=== PATIENT | female | born 1995 | race Caucasian/White ===

== ENCOUNTER 2017-09-15 14:43 | Emergency (ER) | payer OTHER ==
[~2017-09-15] VITALS: Ht 165.1 cm; Wt 122.5 kg
[~2017-09-15 14:43] MED LIST: AZIT250 PO; BIRTHCONTROL; Bactrim Ds Tab1 EACH PO; CEPH500 PO; CRUTCH3 USE; CRUTCH4 USE; Cipro500 MG PO; Cleocin HCl150 MG PO; HYDACE5 PO; HYDR1TAB94 PO; IBUP600 PO; IBUP800 PO; LORA10ER PO; LORTAB 5-325 M1 EACH PO; Macrobid 100 M100 MG PO; NAPR500 PO; NAPR550 PO; NITR100CA PO; Naprosyn500 MG PO; OMEP10ER PO; OTC ALLERGY MEDS; OXYACE5T PO; PHENA200 PO; PRILOSEC PO; PROACE100 PO; PROM25 PO; Pepcid40 MG PO; Percocet 5-3251 EACH PO; Prednisone20 MG PO; Pyridium200 MG PO; RXHYD5325 PO; RXPROACE PO; SULTRIDS PO; TRAM50 PO; TRIA80TC TOP; Ultram50 MG PO; ZADITOR5 ML BOTHEYES; ZYRTEC10 MG PO; Zithromax250 MG PO; Zofran Odt4 MG SL; Zofran Odt8 MG SL
[2017-09-15 15:45] LABS: Calcium, Ionized (POC) 1.17 mmol/L (1.10-1.46); Chloride (POC) 103 mmol/L (98-108); Creatinine (POC) 0.8 mg/dL (0.6-1.0); Glucose (ISTAT POC) 107 mg/dL (70-99); Hemoglobin (POC) 12.9 g/dL (12.0-16.0); Potassium (POC) 3.1 mmol/L (3.5-5.5); Sodium (POC) 140 mmol/L (135-148); Total CO2 (POC) 25 mmol/L (21-32)
[2017-09-15 15:48] LABS: Source, Urine Clean Catch
[2017-09-15 16:04] LABS: Appearance, Urine Hazy (Clear); Bilirubin, Urine Neg (Neg); Blood, Urine 5+ (Neg); Color, Urine Yellow (P-Yellow); Glucose Qualitative, Urine Neg (Neg); Ketones, Urine 2+ (Neg); Leukocyte Esterase, Urine 2+ (Neg); Nitrite, Urine Neg (Neg); Protein, Urine 1+ (Neg); Urobilinogen, Urine NORM (Normal)
[2017-09-15 16:53] LABS: Bacteria Mod /hpf; Squamous Epithelial Cells Few /hpf (Few)
[2017-09-15] MEDS ORDERED: Bactrim Ds Tab1 EACH PO (17:12)
[2017-09-15] MEDS ORDERED: Pyridium100 MG PO (17:12)
== END 2017-09-15 17:30 | disposition home or self-care (01) ==
LOC: ER 14:43
PROVIDERS: Physician Assistant
DX: N12 Tubulo-interstitial nephritis, not specified as acute or chronic (principal); E87.6 Hypokalemia; Z88.0 Allergy status to penicillin; Z79.899 Other long term (current) drug therapy; F17.290 Nicotine dependence, other tobacco product, uncomplicated
CPT/HCPCS: 36415; 80047; 81001; 81025; 85014; 87077; 87086; 87186; 99283

== ENCOUNTER 2017-09-22 14:13 | Emergency (ER) | payer OTHER ==
[~2017-09-22] VITALS: Ht 165.1 cm; Wt 122.5 kg
[~2017-09-22 14:13] MED LIST changes: +Pyridium100 MG PO
[2017-09-22 15:03] LABS: Source, Urine Clean Catch
[2017-09-22 15:16] LABS: Appearance, Urine Clear (Clear); Bilirubin, Urine Neg (Neg); Blood, Urine 2+ (Neg); Color, Urine Yellow (P-Yellow); Glucose Qualitative, Urine Neg (Neg); Ketones, Urine 4+ (Neg); Leukocyte Esterase, Urine 2+ (Neg); Nitrite, Urine Neg (Neg); Protein, Urine Neg (Neg); Specific Gravity, Urine 1.015 (1.003-1.022); Urobilinogen, Urine NORM (Normal)
[2017-09-22 15:22] LABS: Bacteria Rare /hpf; Squamous Epithelial Cells Many /hpf (Few)
[2017-09-22 15:26] LABS: BASOPHILS ABSOLUTE AUTO 0.02 K/mm3 (0.00-0.23); BASOPHILS PERCENT AUTO 0 % (0-2); EOSINOPHILS ABSOLUTE AUTO 0.03 K/mm3 (0.00-0.68); EOSINOPHILS PERCENT AUTO 0 % (0-6); Hematocrit 41.4 % (33.0-51.0); Hemoglobin 13.5 g/dL (11.5-16.0); IMMATURE GRAN ABSOLUTE AUTO 0.02 K/mm3 (0.00-0.10); IMMATURE GRAN PERCENT AUTO 0 % (0-1); LYMPHOCYTES ABSOLUTE AUTO 2.56 K/mm3 (0.84-5.20); LYMPHOCYTES PERCENT AUTO 35 % (21-46); MONOCYTES ABSOLUTE AUTO 0.54 K/mm3 (0.16-1.47); MONOCYTES PERCENT AUTO 7 % (4-13); Mean Corpuscular HGB 28.1 pg (26.0-34.0); Mean Corpuscular HGB Conc 32.6 g/dL (31.5-36.5); Mean Corpuscular Volume 86 fL (80-100); Mean Platelet Volume 10.8 fL (9.1-12.4); NEUTROPHILS ABSOLUTE AUTO 4.11 K/mm3 (1.96-9.15); NEUTROPHILS PERCENT AUTO 56 % (41-73); Platelet Count 270 K/mm3 (150-400); RDW Coefficient Variation 14.1 % (11.7-14.2); RDW Standard Deviation 44.5 fL (35.1-46.3); White Blood Cell Count 7.28 K/mm3 (4.00-11.30)
[2017-09-22 15:38] LABS: Alanine Aminotransfer (ALT/SGP 31 U/L (12-78); Albumin, Blood 3.8 g/dL (3.4-5.0); Alk Phos 61 U/L (50-136); Anion Gap 11 mmol/L (6-16); Aspartate Aminotrans (AST/SGOT 35 U/L (12-37); Blood Urea Nitrogen 7 mg/dL (8-24); Bun/Creatinine Ratio 8.8 (12.0-20.0); CO2, Blood 23 mmol/L (21-32); Calcium, Blood 9.1 mg/dL (8.5-10.1); Chloride, Blood 104 mmol/L (98-108); Globulin, Blood 3.9 g/dL (2.2-4.0); Glomerular Filtration Rate >60 (60-); Glucose, Blood 98 mg/dL (70-99); Potassium, Blood 3.2 mmol/L (3.5-5.5); Sodium, Blood 138 mmol/L (136-145); Total Protein, Blood 7.7 g/dL (6.4-8.2)
[2017-09-22] MEDS ORDERED: PROC5 PO (16:58)
[2017-09-22] MEDS ORDERED: OMEPRAZOLE MAGN20 MG PO (17:00)
== END 2017-09-22 18:14 | disposition home or self-care (01) ==
LOC: ER 14:13
PROVIDERS: Emergency Medicine
DX: R11.2 Nausea with vomiting, unspecified (principal); N39.0 Urinary tract infection, site not specified; Z88.0 Allergy status to penicillin; Z79.2 Long term (current) use of antibiotics; F17.290 Nicotine dependence, other tobacco product, uncomplicated
CPT/HCPCS: 36415; 80053; 81001; 81025; 85025; 87086; 96361; 96365; 96375; 99283; C9113; J1956; J2405; J3490; J7030

== ENCOUNTER 2017-09-22 23:52 | Emergency (ER) | payer OTHER ==
[~2017-09-22] VITALS: Ht 165.1 cm; Wt 122.5 kg
[~2017-09-22 23:52] MED LIST changes: +OMEPRAZOLE MAGN20 MG PO; +PROC5 PO
== END 2017-09-23 03:25 | disposition home or self-care (01) ==
LOC: ER 23:52
DX: R11.2 Nausea with vomiting, unspecified (principal); Z87.891 Personal history of nicotine dependence; Z79.899 Other long term (current) drug therapy; Z88.0 Allergy status to penicillin
CPT/HCPCS: 96374; 96375; 99283; J2405; J2550

== ENCOUNTER 2017-10-07 11:53 | Emergency (ER) | payer OTHER ==
[~2017-10-07] VITALS: Ht 165.1 cm; Wt 108.9 kg
[2017-10-07] MEDS ORDERED: Verotin-Gr Cap1 EACH PO (12:09)
[2017-10-07 12:37] LABS: BASOPHILS ABSOLUTE AUTO 0.02 K/mm3 (0.00-0.23); BASOPHILS PERCENT AUTO 0 % (0-2); EOSINOPHILS ABSOLUTE AUTO 0.06 K/mm3 (0.00-0.68); EOSINOPHILS PERCENT AUTO 1 % (0-6); Hematocrit 42.2 % (33.0-51.0); Hemoglobin 13.8 g/dL (11.5-16.0); IMMATURE GRAN ABSOLUTE AUTO 0.01 K/mm3 (0.00-0.10); IMMATURE GRAN PERCENT AUTO 0 % (0-1); LYMPHOCYTES ABSOLUTE AUTO 1.86 K/mm3 (0.84-5.20); LYMPHOCYTES PERCENT AUTO 32 % (21-46); MONOCYTES PERCENT AUTO 5 % (4-13); Mean Corpuscular HGB 28.3 pg (26.0-34.0); Mean Corpuscular HGB Conc 32.7 g/dL (31.5-36.5); Mean Corpuscular Volume 87 fL (80-100); Mean Platelet Volume 11.4 fL (9.1-12.4); NEUTROPHILS ABSOLUTE AUTO 3.64 K/mm3 (1.96-9.15); NEUTROPHILS PERCENT AUTO 62 % (41-73); Platelet Count 277 K/mm3 (150-400); RDW Coefficient Variation 13.7 % (11.7-14.2); RDW Standard Deviation 43.3 fL (35.1-46.3); Red Blood Cell Count 4.88 M/mm3 (3.80-5.20); White Blood Cell Count 5.89 K/mm3 (4.00-11.30)
[2017-10-07 12:59] LABS: Alanine Aminotransfer (ALT/SGP 24 U/L (12-78); Albumin, Blood 3.6 g/dL (3.4-5.0); Albumin/Globulin Ratio 0.9 (0.8-1.8); Alk Phos 54 U/L (50-136); Anion Gap 8 mmol/L (6-16); Aspartate Aminotrans (AST/SGOT 15 U/L (12-37); Beta HCG, Quantitative, Serum 14 mIU/mL (0-3); Bilirubin, Total 0.8 mg/dL (0.1-1.0); Blood Urea Nitrogen 7 mg/dL (8-24); Bun/Creatinine Ratio 9.4 (12.0-20.0); CO2, Blood 25 mmol/L (21-32); Calcium, Blood 9.1 mg/dL (8.5-10.1); Chloride, Blood 107 mmol/L (98-108); Creatinine, Blood 0.74 mg/dL (0.40-1.00); Globulin, Blood 4.2 g/dL (2.2-4.0); Glomerular Filtration Rate >60 (60-); Glucose, Blood 95 mg/dL (70-99); Potassium, Blood 3.4 mmol/L (3.5-5.5); Sodium, Blood 140 mmol/L (136-145); Total Protein, Blood 7.8 g/dL (6.4-8.2)
[2017-10-07 13:04] LABS: Source, Urine Clean Catch
[2017-10-07 13:18] LABS: Bilirubin, Urine Neg (Neg); Blood, Urine 5+ (Neg); Glucose Qualitative, Urine Neg (Neg); Ketones, Urine 4+ (Neg); Leukocyte Esterase, Urine 2+ (Neg); Nitrite, Urine Neg (Neg); Protein, Urine 3+ (Neg); Urobilinogen, Urine 1+ (Normal)
[2017-10-07 13:39] LABS: Appearance, Urine Bloody (Clear); Color, Urine Red (P-Yellow)
[2017-10-07 13:41] LABS: Bacteria Many /hpf; Red Blood Cells, Urine TNTC /hpf (0-2); Squamous Epithelial Cells Few /hpf (Few)
[2017-10-07] MEDS ORDERED: Macrobid 100 M100 MG PO (15:22)
== END 2017-10-07 15:55 | disposition home or self-care (01) ==
LOC: ER 11:53
PROVIDERS: Emergency Medicine
DX: O03.9 Complete or unspecified spontaneous abortion without complication (principal); Z88.0 Allergy status to penicillin; Z87.891 Personal history of nicotine dependence; Z79.899 Other long term (current) drug therapy
CPT/HCPCS: 36415; 80053; 81001; 84702; 85025; 86850; 86900; 86901; 87086; 96372; 99283; J2790

== ENCOUNTER 2023-04-24 19:17 | Emergency (ER) | payer OTHER ==
[~2023-04-24] VITALS: Ht 165.1 cm; Wt 141.5 kg
[~2023-04-24 19:17] MED LIST changes: +Verotin-Gr Cap1 EACH PO
[2023-04-24 19:26] VITALS: BP 172/101
== END 2023-04-24 21:49 | disposition home or self-care (01) ==
LOC: ER 19:17
DX: R05.9 Cough, unspecified (principal); Z88.0 Allergy status to penicillin; Z79.899 Other long term (current) drug therapy; Z87.891 Personal history of nicotine dependence
CPT/HCPCS: 71046; 99283-25; A9270

== ENCOUNTER 2023-07-18 08:55 | Emergency (ER) | payer OTHER ==
[~2023-07-18] VITALS: Ht 165.1 cm; Wt 136.1 kg
[2023-07-18 09:59] VITALS: BP 134/89
[2023-07-18 10:23] LABS: Source, Urine Clean Catch
[2023-07-18 10:30] LABS: Appearance, Urine Hazy (Clear); Bilirubin, Urine Neg (Neg); Blood, Urine 5+ (Neg); Color, Urine Amber (P-Yellow); Glucose Qualitative, Urine Neg (Neg); Ketones, Urine 3+ (Neg); Leukocyte Esterase, Urine 1+ (Neg); Nitrite, Urine Neg (Neg); Protein, Urine 3+ (Neg); Urobilinogen, Urine 1+ (Normal)
[2023-07-18 10:37] LABS: BASOPHILS ABSOLUTE AUTO 0.04 K/mm3 (0.00-0.23); BASOPHILS PERCENT AUTO 1 % (0-2); EOSINOPHILS ABSOLUTE AUTO 0.06 K/mm3 (0.00-0.68); EOSINOPHILS PERCENT AUTO 1 % (0-6); Hematocrit 40.4 % (33.0-51.0); Hemoglobin 13.2 g/dL (11.5-16.0); IMMATURE GRAN ABSOLUTE AUTO 0.03 K/mm3 (0.00-0.10); IMMATURE GRAN PERCENT AUTO 0 % (0-1); LYMPHOCYTES ABSOLUTE AUTO 1.55 K/mm3 (0.84-5.20); LYMPHOCYTES PERCENT AUTO 20 % (21-46); MONOCYTES ABSOLUTE AUTO 0.34 K/mm3 (0.16-1.47); MONOCYTES PERCENT AUTO 5 % (4-13); Mean Corpuscular HGB 26.8 pg (26.0-34.0); Mean Corpuscular HGB Conc 32.7 g/dL (31.5-36.5); Mean Corpuscular Volume 82 fL (80-100); Mean Platelet Volume 11.8 fL (9.1-12.4); NEUTROPHILS ABSOLUTE AUTO 5.61 K/mm3 (1.96-9.15); NEUTROPHILS PERCENT AUTO 74 % (41-73); Platelet Count 284 K/mm3 (150-400); RDW Coefficient Variation 15.4 % (11.7-14.2); RDW Standard Deviation 45.5 fL (35.1-46.3); Red Blood Cell Count 4.93 M/mm3 (3.80-5.20); White Blood Cell Count 7.63 K/mm3 (4.00-11.30)
[2023-07-18 11:00] LABS: Alanine Aminotransfer (ALT/SGP 31 U/L (12-78); Albumin, Blood 3.5 g/dL (3.4-5.0); Albumin/Globulin Ratio 0.8 (0.8-1.8); Alk Phos 62 U/L (50-136); Anion Gap 5 mmol/L (6-16); Aspartate Aminotrans (AST/SGOT 25 U/L (12-37); Beta HCG, Quantitative, Serum <1 mIU/mL (0-3); Bilirubin, Total 1.2 mg/dL (0.1-1.0); Blood Urea Nitrogen 10 mg/dL (8-24); Bun/Creatinine Ratio 12.9 (12.0-20.0); CO2, Blood 26 mmol/L (21-32); Calcium, Blood 9.2 mg/dL (8.5-10.1); Chloride, Blood 109 mmol/L (98-108); Creatinine, Blood 0.78 mg/dL (0.40-1.00); Globulin, Blood 4.5 g/dL (2.2-4.0); Glomerular Filtration Rate 107 (60-); Glucose, Blood 117 mg/dL (70-99); Potassium, Blood 3.4 mmol/L (3.5-5.5); Sodium, Blood 140 mmol/L (136-145)
[2023-07-18 11:18] LABS: Red Blood Cells, Urine 50-100 /hpf (0-2)
[2023-07-18 11:19] LABS: Amorphous Light (0-Heavy); Bacteria Mod /hpf; Hyaline Casts 0-2 /lpf (0-2); Squamous Epithelial Cells Few /hpf (Few)
[2023-07-18] MEDS ORDERED: Bactrim Ds Tab1 EACH PO (11:40)
[2023-07-18] MEDS ORDERED: ONDA4ODT MM (11:46)
== END 2023-07-18 11:54 | disposition home or self-care (01) ==
LOC: ER 08:55
PROVIDERS: Physician Assistant
DX: N39.0 Urinary tract infection, site not specified (principal); Z87.891 Personal history of nicotine dependence; Z88.0 Allergy status to penicillin
CPT/HCPCS: 80053; 81001; 81025; 84702; 85025; 87086; 96360; 99284-25; A9270; J7030

== ENCOUNTER 2023-08-18 21:25 | Emergency (ER) | payer OTHER ==
[~2023-08-18] VITALS: Ht 165.1 cm; Wt 127.0 kg
[~2023-08-18 21:25] MED LIST changes: +ONDA4ODT MM
[2023-08-18 22:03] VITALS: BP 153/95
== END 2023-08-18 23:20 | disposition home or self-care (01) ==
LOC: ER 21:25
DX: G43.909 Migraine, unspecified, not intractable, without status migrainosus (principal); Z88.0 Allergy status to penicillin; Z79.899 Other long term (current) drug therapy; Z87.891 Personal history of nicotine dependence
CPT/HCPCS: 96374; 96375; 99283-25; J0780; J1200; J1885; J2405; J7030

== ENCOUNTER → 2023-09-10 | Outpatient (CLI) | payer OTHER ==
[2023-09-10 16:08] LABS: Bacterial Vaginosis PCR Negative (NEGATIVE); Candida Group, PCR NOT DETECTED (NOT DETECT)
[2023-09-10 16:09] LABS: Candida glabrata-krusei, PCR DETECTED (NOT DETECT)
[2023-09-12 22:39] LABS: C. TRACHOMATIS BY TMA,THINPREP Negative (Negative); N. GONORRHOEAE BY TMA,THINPREP Negative (Negative); SPECIMEN SOURCE Cervical
== END | disposition home or self-care (01) ==
LOC: LAB SHORT 14:33
PROVIDERS: Physician Assistant
DX: Z01.419 Encounter for gynecological examination (general) (routine) without abnormal findings (principal); B37.31 Acute candidiasis of vulva and vagina
CPT/HCPCS: 87481; 87491; 87591; 87661; 87801

== ENCOUNTER → 2023-11-14 | Outpatient (CLI) | payer OTHER ==
[~2023-11-14] MED LIST changes: +BCP
[2023-11-14 12:31] LABS: BASOPHILS ABSOLUTE AUTO 0.03 K/mm3 (0.00-0.23); BASOPHILS PERCENT AUTO 0 % (0-2); EOSINOPHILS ABSOLUTE AUTO 0.11 K/mm3 (0.00-0.68); EOSINOPHILS PERCENT AUTO 1 % (0-6); Hemoglobin 14.2 g/dL (11.5-16.0); IMMATURE GRAN ABSOLUTE AUTO 0.03 K/mm3 (0.00-0.10); IMMATURE GRAN PERCENT AUTO 0 % (0-1); LYMPHOCYTES ABSOLUTE AUTO 1.68 K/mm3 (0.84-5.20); LYMPHOCYTES PERCENT AUTO 20 % (21-46); MONOCYTES ABSOLUTE AUTO 0.34 K/mm3 (0.16-1.47); MONOCYTES PERCENT AUTO 4 % (4-13); Mean Corpuscular HGB 27.8 pg (26.0-34.0); Mean Corpuscular Volume 84 fL (80-100); Mean Platelet Volume 11.8 fL (9.1-12.4); NEUTROPHILS PERCENT AUTO 75 % (41-73); Platelet Count 319 K/mm3 (150-400); RDW Coefficient Variation 14.5 % (11.7-14.2); RDW Standard Deviation 44.2 fL (35.1-46.3); White Blood Cell Count 8.59 K/mm3 (4.00-11.30)
[2023-11-14 13:07] LABS: Albumin, Blood 3.4 g/dL (3.4-5.0); Albumin/Globulin Ratio 0.7 (0.8-1.8); Bilirubin, Total 0.8 mg/dL (0.1-1.0); Creatinine, Blood 0.91 mg/dL (0.40-1.00); Globulin, Blood 4.7 g/dL (2.2-4.0); Potassium, Blood 3.5 mmol/L (3.5-5.5); Total Protein, Blood 8.1 g/dL (6.4-8.2)
[2023-11-14 13:15] LABS: Calcium, Blood 9.2 mg/dL (8.5-10.1)
== END | disposition home or self-care (01) ==
LOC: LAB SHORT 12:25 → LAB 12:25
PROVIDERS: Emergency Medicine
DX: O46.90 Antepartum hemorrhage, unspecified, unspecified trimester (principal)
CPT/HCPCS: 80053; 84702; 85025

== ENCOUNTER → 2024-01-13 | Outpatient (CLI) | payer OTHER | LOC: LAB 17:23 → LAB SHORT 17:23 | DX: N39.0 Urinary tract infection, site not specified (principal) | CPT/HCPCS: 87086 ==

== ENCOUNTER → 2024-03-13 | Outpatient (CLI) | payer OTHER ==
[2024-03-13 19:48] LABS: Bacterial Vaginosis PCR Negative (NEGATIVE); Candida Group, PCR NOT DETECTED (NOT DETECT); Candida glabrata-krusei, PCR NOT DETECTED (NOT DETECT)
== END ==
LOC: LAB SHORT 17:54 → LAB 17:54
PROVIDERS: Advanced Practice Midwife
DX: N76.0 Acute vaginitis (principal)
CPT/HCPCS: 87481; 87661; 87801

== ENCOUNTER 2024-04-12 20:10 | Emergency (ER) | payer OTHER ==
[~2024-04-12] VITALS: Ht 165.1 cm; Wt 122.5 kg
[2024-04-12] MEDS ORDERED: ESTARYLLA 0.251 EACH PO (20:23)
[2024-04-12] MEDS ORDERED: BUPROPION XL150 M1 PO (20:25)
[2024-04-12 21:30] VITALS: BP 175/102
[2024-04-12] MEDS ORDERED: LORazepam 1 MG Tab PO ONE (21:40)
[2024-04-12] MEDS ORDERED: Acetaminophen 500 MG Tab PO ONE (21:40)
== END 2024-04-12 22:10 | disposition home or self-care (01) ==
LOC: ER 20:10
DX: F32.A Depression, unspecified (principal); F41.9 Anxiety disorder, unspecified; Z87.891 Personal history of nicotine dependence; Z88.0 Allergy status to penicillin; Z79.899 Other long term (current) drug therapy
CPT/HCPCS: 99284; A9270

== ENCOUNTER 2024-05-07 19:25 | Emergency (ER) | payer OTHER ==
[~2024-05-07] VITALS: Ht 165.1 cm; Wt 114.3 kg
[~2024-05-07 19:25] MED LIST changes: +BUPROPION XL150 M1 PO; +ESTARYLLA 0.251 EACH PO
[2024-05-07 19:36] VITALS: BP 118/77
[2024-05-07] MEDS ORDERED: Ondansetron 4 MG SoluTab SL ONE (20:50)
[2024-05-07] MEDS ORDERED: HYDROcodone 5-APAP 325 TAB PO ONE (20:50)
== END 2024-05-07 21:40 | disposition home or self-care (01) ==
LOC: ER 19:25
DX: S93.401A Sprain of unspecified ligament of right ankle, initial encounter (principal); W01.0XXA Fall on same level from slipping, tripping and stumbling without subsequent striking against object, initial encounter; Z87.891 Personal history of nicotine dependence; Z88.0 Allergy status to penicillin; Z79.899 Other long term (current) drug therapy
CPT/HCPCS: 73610; 99283-25; A9270

== ENCOUNTER 2024-05-26 19:40 | Emergency (ER) | payer OTHER ==
[~2024-05-26] VITALS: Ht 165.1 cm; Wt 114.3 kg
[2024-05-26 20:17] VITALS: BP 147/104
[2024-05-26 20:41] LABS: BASOPHILS ABSOLUTE AUTO 0.04 K/mm3 (0.00-0.23); BASOPHILS PERCENT AUTO 0 % (0-2); EOSINOPHILS ABSOLUTE AUTO 0.21 K/mm3 (0.00-0.68); EOSINOPHILS PERCENT AUTO 2 % (0-6); Hematocrit 40.1 % (33.0-51.0); IMMATURE GRAN ABSOLUTE AUTO 0.04 K/mm3 (0.00-0.10); IMMATURE GRAN PERCENT AUTO 0 % (0-1); LYMPHOCYTES ABSOLUTE AUTO 2.84 K/mm3 (0.84-5.20); LYMPHOCYTES PERCENT AUTO 27 % (21-46); MONOCYTES ABSOLUTE AUTO 0.45 K/mm3 (0.16-1.47); MONOCYTES PERCENT AUTO 4 % (4-13); Mean Corpuscular HGB 27.8 pg (26.0-34.0); Mean Corpuscular HGB Conc 32.4 g/dL (31.5-36.5); Mean Corpuscular Volume 86 fL (80-100); Mean Platelet Volume 11.2 fL (9.1-12.4); NEUTROPHILS ABSOLUTE AUTO 6.77 K/mm3 (1.96-9.15); NEUTROPHILS PERCENT AUTO 66 % (41-73); Platelet Count 245 K/mm3 (150-400); RDW Standard Deviation 43.5 fL (35.1-46.3); Red Blood Cell Count 4.68 M/mm3 (3.80-5.20); White Blood Cell Count 10.35 K/mm3 (4.00-11.30)
[2024-05-26 21:13] LABS: Albumin, Blood 2.9 g/dL (3.4-5.0); Albumin/Globulin Ratio 0.7 (0.8-1.8); Bilirubin, Total 0.5 mg/dL (0.1-1.0); Bun/Creatinine Ratio 16.2 (12.0-20.0); Calcium, Blood 8.9 mg/dL (8.5-10.1); Creatinine, Blood 0.86 mg/dL (0.40-1.00); Potassium, Blood 3.8 mmol/L (3.5-5.5); Total Protein, Blood 6.9 g/dL (6.4-8.2)
== END 2024-05-26 23:27 | disposition left against medical advice (07) ==
LOC: ER 19:40
PROVIDERS: Emergency Medicine
DX: R07.9 Chest pain, unspecified (principal); R20.0 Anesthesia of skin; Z53.21 Procedure and treatment not carried out due to patient leaving prior to being seen by health care provider
CPT/HCPCS: 71046; 80053; 84484; 85025

== ENCOUNTER 2024-06-07 21:54 | Emergency (ER) | payer OTHER ==
[~2024-06-07] VITALS: Ht 165.1 cm; Wt 126.5 kg
[~2024-06-07 21:54] MED LIST changes: +COMPAZINE10 MG PO; +DOXYCYCLINE HY100 M1 PO; +ESTARYLLA 0.251 EACH
[2024-06-08 00:04] LABS: BASOPHILS ABSOLUTE AUTO 0.03 K/mm3 (0.00-0.23); BASOPHILS PERCENT AUTO 0 % (0-2); EOSINOPHILS ABSOLUTE AUTO 0.15 K/mm3 (0.00-0.68); EOSINOPHILS PERCENT AUTO 2 % (0-6); Hematocrit 40.8 % (33.0-51.0); Hemoglobin 13.2 g/dL (11.5-16.0); IMMATURE GRAN ABSOLUTE AUTO 0.03 K/mm3 (0.00-0.10); IMMATURE GRAN PERCENT AUTO 0 % (0-1); LYMPHOCYTES ABSOLUTE AUTO 3.07 K/mm3 (0.84-5.20); LYMPHOCYTES PERCENT AUTO 35 % (21-46); MONOCYTES ABSOLUTE AUTO 0.44 K/mm3 (0.16-1.47); MONOCYTES PERCENT AUTO 5 % (4-13); Mean Corpuscular HGB 27.6 pg (26.0-34.0); Mean Corpuscular HGB Conc 32.4 g/dL (31.5-36.5); Mean Corpuscular Volume 85 fL (80-100); Mean Platelet Volume 11.7 fL (9.1-12.4); NEUTROPHILS PERCENT AUTO 58 % (41-73); Platelet Count 283 K/mm3 (150-400); RDW Coefficient Variation 14.1 % (11.7-14.2); RDW Standard Deviation 43.6 fL (35.1-46.3); Red Blood Cell Count 4.79 M/mm3 (3.80-5.20); White Blood Cell Count 8.72 K/mm3 (4.00-11.30)
[2024-06-08 00:20] LABS: International Normalized Ratio 0.96; Prothrombin Time Results 10.3 Sec (9.7-11.5)
[2024-06-08 01:30] VITALS: BP 165/93
== END 2024-06-08 01:42 | disposition home or self-care (01) ==
LOC: ER 21:54
PROVIDERS: Student in an Organized Health Care Education/Training Program
DX: R10.31 Right lower quadrant pain (principal); R11.2 Nausea with vomiting, unspecified; N93.9 Abnormal uterine and vaginal bleeding, unspecified; Z87.891 Personal history of nicotine dependence; Z79.899 Other long term (current) drug therapy; Z88.0 Allergy status to penicillin
CPT/HCPCS: 74177; 76830; 76856; 80053; 81001; 84703; 85025; 85610; 85730; 96374-59; 96375; 99284-25; J0780; J2270; Q9967

== ENCOUNTER 2024-07-09 06:08 | Day surgery (SDC) | payer OTHER ==
[~2024-07-09] VITALS: Ht 165.1 cm; Wt 129.3 kg
[2024-07-09] MEDS ORDERED: ALBU90OI INH (06:35)
[2024-07-09] MEDS ORDERED: Lactated Ringer's 1,000 ML IV ONE (06:55)
[2024-07-09] MEDS ORDERED: Midazolam HCl 1MG / ML 2ML Vial ONE (06:58)
[2024-07-09] MEDS ORDERED: FentaNYL Citrate 50 MCG/ML 2 ML Injection ONE ×2 (06:58→08:46)
[2024-07-09] MEDS ORDERED: propofoL 0 ML IV ONE (06:58)
[2024-07-09] MEDS ORDERED: propofoL 40 ML IV ONE (08:05)
[2024-07-09] MEDS ORDERED: Ondansetron HCl 2 MG / ML 2ML Vial ONE (08:16)
[2024-07-09] MEDS ORDERED: Dexamethasone Sod Phos 10 MG/ML 1ML VIAL ONE (08:16)
[2024-07-09] MEDS ORDERED: Silver Nitr/Potassium Nitrate 1 EA APPL ONE ×3 (08:21→09:21)
--- NOTE | 2024-07-09 08:22 | NUR ---
07/09/24 0822 Edda Cortez FLUID DEFICIT 100ML
[2024-07-09] MEDS ORDERED: Silver Nitr/Potassium Nitrate 1 EA APPL XX ONE (08:23)
[2024-07-09] MEDS ORDERED: OxyCODONE 5 mg/Acetamin 325 mg TABLET ONE (08:46)
--- NOTE | 2024-07-09 10:15 | NUR ---
07/09/24 1015 Bette Moraes 1000 PT TO BATHROOM BY W/C, PT ABLE TO VOID.
[2024-07-09 10:18] VITALS: BP 144/86
== END 2024-07-09 10:15 | disposition home or self-care (01) ==
LOC: ORSCSDS 06:08 → ORD 11:00 → ORSCSDS 11:00
PROVIDERS: Obstetrics & Gynecology
PROC: 0UDB8ZX Extraction of Endometrium, Via Natural or Artificial Opening Endoscopic, Diagnostic (ICD-10-PCS; principal; 2024-07-09 08:00)
DX: N92.1 Excessive and frequent menstruation with irregular cycle (principal); Z01.818 Encounter for other preprocedural examination; F32.9 Major depressive disorder, single episode, unspecified; E66.01 Morbid (severe) obesity due to excess calories; Z68.42 Body mass index [BMI] 45.0-49.9, adult; J45.909 Unspecified asthma, uncomplicated; Z79.899 Other long term (current) drug therapy
CPT/HCPCS: 88305; 88342; A9270; J1100; J2250; J2405; J2704; J3010

== ENCOUNTER 2024-08-31 15:00 | Emergency (ER) | payer OTHER ==
[~2024-08-31] VITALS: Ht 165.1 cm; Wt 121.6 kg
[~2024-08-31 15:00] MED LIST changes: +ALBU90OI INH
[2024-08-31] MEDS ORDERED: NS 1,000 ML IV SCH (15:35)
[2024-08-31 15:52] LABS: BASOPHILS ABSOLUTE AUTO 0.01 K/mm3 (0.00-0.23); BASOPHILS PERCENT AUTO 0 % (0-2); EOSINOPHILS ABSOLUTE AUTO 0.02 K/mm3 (0.00-0.68); EOSINOPHILS PERCENT AUTO 1 % (0-6); Hematocrit 39.1 % (33.0-51.0); Hemoglobin 12.9 g/dL (11.5-16.0); IMMATURE GRAN ABSOLUTE AUTO 0.01 K/mm3 (0.00-0.10); IMMATURE GRAN PERCENT AUTO 0 % (0-1); LYMPHOCYTES ABSOLUTE AUTO 0.48 K/mm3 (0.84-5.20); LYMPHOCYTES PERCENT AUTO 11 % (21-46); MONOCYTES ABSOLUTE AUTO 0.31 K/mm3 (0.16-1.47); MONOCYTES PERCENT AUTO 7 % (4-13); Mean Corpuscular HGB 28.7 pg (26.0-34.0); Mean Corpuscular Volume 87 fL (80-100); Mean Platelet Volume 11.1 fL (9.1-12.4); NEUTROPHILS ABSOLUTE AUTO 3.51 K/mm3 (1.96-9.15); NEUTROPHILS PERCENT AUTO 81 % (41-73); Platelet Count 184 K/mm3 (150-400); RDW Coefficient Variation 14.8 % (11.7-14.2); RDW Standard Deviation 47.6 fL (35.1-46.3); White Blood Cell Count 4.34 K/mm3 (4.00-11.30)
[2024-08-31 16:21] LABS: Alanine Aminotransfer (ALT/SGP 17 U/L (12-78); Albumin, Blood 2.9 g/dL (3.4-5.0); Albumin/Globulin Ratio 0.7 (0.8-1.8); Alk Phos 58 U/L (50-136); Anion Gap 12 mmol/L (3-11); Aspartate Aminotrans (AST/SGOT 16 U/L (12-37); Beta HCG, Quantitative, Serum <1 mIU/mL (0-3); Bilirubin, Total 0.8 mg/dL (0.1-1.0); Blood Urea Nitrogen 9 mg/dL (8-24); Bun/Creatinine Ratio 12.2 (12.0-20.0); CO2, Blood 19 mmol/L (21-32); Calcium, Blood 9.1 mg/dL (8.5-10.1); Chloride, Blood 112 mmol/L (98-108); Creatinine, Blood 0.74 mg/dL (0.40-1.00); Globulin, Blood 4.2 g/dL (2.2-4.0); Glomerular Filtration Rate 113 (60-); Glucose, Blood 93 mg/dL (70-99); Potassium, Blood 3.5 mmol/L (3.5-5.5); Sodium, Blood 139 mmol/L (136-145); Total Protein, Blood 7.1 g/dL (6.4-8.2)
[2024-08-31 16:38] LABS: Source, Urine Clean Catch
[2024-08-31 16:42] LABS: Appearance, Urine Hazy (Clear); Bilirubin, Urine Neg (Neg); Blood, Urine 5+ (Neg); Color, Urine Amber (P-Yellow); Glucose Qualitative, Urine Neg (Neg); Ketones, Urine 3+ (Neg); Leukocyte Esterase, Urine Neg (Neg); Nitrite, Urine Neg (Neg); Protein, Urine 3+ (Neg); Urobilinogen, Urine 2+ (Normal)
[2024-08-31 17:10] LABS: Bacteria Many /hpf; Mucus Light (0-Heavy); Squamous Epithelial Cells Few /hpf (Few)
[2024-08-31 17:19] LABS: Influenza B, PCR NEGATIVE (NEGATIVE); Resp Syncytial Virus, PCR NEGATIVE (NEGATIVE); SARS-Cov-2 (COVID-19) PCR, MMC NEGATIVE (NEGATIVE)
[2024-08-31] MEDS ORDERED: OxyCODONE HCL 5 MG TAB PO ONE (17:25)
[2024-08-31] MEDS ORDERED: Ketorolac Tromethamine 15mg Vial IV ONE (17:25)
[2024-08-31] MEDS ORDERED: Acetaminophen 500 MG Tab PO ONE (17:35)
[2024-08-31 17:48] LABS: Influenza A, PCR POSITIVE (NEGATIVE)
[2024-08-31] MEDS ORDERED: LISI5 PO (17:54)
[2024-08-31] MEDS ORDERED: METFORMIN HCL500 M3 PO (17:54)
[2024-08-31] MEDS ORDERED: CIPR500 PO (17:59)
[2024-08-31] MEDS ORDERED: Ciprofloxacin 500 MG Tab PO ONE (18:00)
[2024-08-31] MEDS ORDERED: Ondansetron HCl 2 MG / ML 2ML Vial IV ONE ×2 (18:10→18:45)
[2024-08-31] MEDS ORDERED: ONDA4 PO (18:48)
[2024-08-31] MEDS ORDERED: TAMIFLU PO (18:48)
[2024-08-31 19:15] VITALS: BP 136/72
== END 2024-08-31 19:19 | disposition home or self-care (01) ==
LOC: ER 15:00
PROVIDERS: Student in an Organized Health Care Education/Training Program
DX: J11.1 Influenza due to unidentified influenza virus with other respiratory manifestations (principal); N12 Tubulo-interstitial nephritis, not specified as acute or chronic; Z87.891 Personal history of nicotine dependence; Z88.0 Allergy status to penicillin; Z79.3 Long term (current) use of hormonal contraceptives; Z79.51 Long term (current) use of inhaled steroids
CPT/HCPCS: 0241U; 71045; 74177; 80053; 81001; 83690; 84484; 84702; 85025; 87086; 96361; 96374-59; 96375; 96376; 99285-25; A9270; J1885; J2405; J7030; Q9967

== ENCOUNTER 2024-10-19 09:03 | Day surgery (SDC) | payer OTHER ==
[2024-10-19] VITALS (14 sets, daily range): BP systolic 117–160; BP diastolic 70–99
[~2024-10-19] VITALS: Ht 165.1 cm; Wt 131.5 kg
[~2024-10-19 09:03] MED LIST changes: +CIPR500 PO; +CeFAZolin Sodium 3,000 MG in NS 100 ML IV SCH; +Dexamethasone Sod Phos 10 MG/ML 1ML VIAL ONE; +Dexmedetomidine HCL 200 MCG / 2 ML ONE; +FentaNYL Citrate 50 MCG/ML 2 ML Injection ONE; +Ketorolac Tromethamine 30mg Vial ONE; +LISI20 PO; +Lactated Ringer's 1,000 ML IV SCH; +MEDR10 PO; +METFORMIN HCL500 M3 PO; +ONDA4 PO; +Ondansetron HCl 2 MG / ML 2ML Vial ONE; +Rocuronium Bromide 10 MG/ML 5ML Injection IV ONE; +Sugammadex Sodium 200 MG/2ML SDV (100 MG/ML) ONE; +TAMIFLU PO; +propofoL 20 ML IV ONE
[2024-10-19] MEDS ORDERED: Lidocaine HCl 1% 5 ML SYR INJ ONE (09:20)
[2024-10-19] MEDS ORDERED: CeFAZolin Sodium 3,000 MG VIAL ONE (09:20)
[2024-10-19] MEDS ORDERED: Midazolam HCl 1MG / ML 2ML Vial IV PRN (09:25)
[2024-10-19] MEDS ORDERED: Scopolamine Hydrobromide Patch TOP ONE (09:45)
[2024-10-19] MEDS ORDERED: Bupivacaine 0.5% HCl 5 MG/ML 30MLVIAL ONE (09:50)
[2024-10-19] MEDS ORDERED: Rocuronium Bromide 10 MG/ML 5ML Injection IV ONE (10:03)
--- NOTE | 2024-10-19 10:13 | NUR ---
0930 History, Chart, Medications and Allergies reviewed before start of procedure.Patient confirms NPO status and agrees with scheduled surgery. Pre-Op teaching done. Pt verbalizes understanding. Patient reports completing Chlorhexadine shower X2 prior to admission to hospital. [facility] AT BEDSIDE
[2024-10-19] MEDS ORDERED: Droperidol 5 mg/2 ml Vial IV PRN (10:40)
[2024-10-19] MEDS ORDERED: Metoclopramide HCl 5MG / ML 2ML Vial IV PRN (10:40)
[2024-10-19] MEDS ORDERED: FentaNYL Citrate 50 MCG/ML 2 ML Injection IV PRN ×5 (10:40→18:12)
[2024-10-19] MEDS ORDERED: HYDROmorphone HCl/Pf 1MG SYR IV PRN (10:40)
[2024-10-19] MEDS ORDERED: Ondansetron HCl 2 MG / ML 2ML Vial IV PRN ×2 (10:40→12:35)
[2024-10-19] MEDS ORDERED: HYDROmorphone HCl/Pf 1MG SYR ONE ×3 (11:02→12:58)
[2024-10-19] MEDS ORDERED: DiphenhydrAMINE HCL 25 MG Cap PO PRN (12:40)
[2024-10-19] MEDS ORDERED: Simethicone 80 MG Chew PO PRN (12:40)
[2024-10-19] MEDS ORDERED: Ketorolac Tromethamine 30mg Vial IV PRN (12:40)
[2024-10-19] MEDS ORDERED: OxyCODONE HCL 5 MG TAB PO PRN ×2 (12:40→12:45)
[2024-10-19] MEDS ORDERED: Metoclopramide HCl 10 MG Tab PO PRN (12:40)
--- NOTE | 2024-10-19 13:30 | NUR ---
PT ARRIVED TO 209 FROM PACU. TRANSFERRED PT FROM [facility] TO BED. PT PAINFUL, RATING 10/10. PROVIDED KPAD FOR COMFORT. ATTEMPTED TO VOID BUT WAS UNABLE. NOW BACK TO BED W/CALL LIGHT IN REACH. VSS. LAP INCISIONS TO ABD W/TISS ADHESIVE CDI. PLACED CAN PAD AND MESH UNDERWEAR. WATER AND SNACKS PROVIDED.
[2024-10-19] MEDS ORDERED: Acetaminophen 500 MG Tab PO SCH (16:00)
--- NOTE | 2024-10-19 18:25 | NUR ---
summary PT HAS BEEN PAINFUL T/O AFTERNOON SINCE ARRIVING TO UNIT FROM PACU. INITIALLY RATED 10/10. HAVE BEEN WORKING ON PAIN MANAGEMENT PER ORDERS AND USE OF KPAD WITH PATIENT T/O DAY. PT RATING PAIN 7/[address] AT [address] TIME[address] WOOTEN THAT PT PAIN NOT ADEQUATELY CONTROLLED TO GO HOME THIS EVENING. PT HAS BEEN OOB AND VOIDED. ATE DINNER. VSS. CALL LIGHT IN REACH.
[2024-10-20 04:08] VITALS: BP 131/77
--- NOTE | 2024-10-20 05:28 | NUR ---
SHIFT SUMMARY NOC PT A/O X 4. PLEASANT AND COOPERATIVE WITH CARE. POST OP VSS. PT POST OP DAY 1 LAP HYSTERECTOMY WITH 4 LAP SITES WITH TISSUE ADHESIVE C/D/I AND OPEN TO AIR, WITH ABD BINDER IN PLACE. PT PAIN BEING MANAGED PER EMAR. PT URINATING WITH A MILD PAIN FROM BEARING DOWN. PT IS PASSING GAS AND HAD C/O OF FEELING A LITTLE BLOATED AND GIVEN GAS X FOR RELIEF. PT STATED CONCERN OF NOT TAKING BP RX YESTERDAY AND REQUESTED BP RX TO RESTART, SO CALLED AND ZESTRIL 20 MG RESTARTED. PT EXPECTED TO DISCHARGE TODAY. PT CURRENTLY RESTING WITH SPOUSE BEDSIDE, BED IN LOWEST POSITION, AND CALL LIGHT WITHIN REACH.
[2024-10-20 07:05] VITALS: BP 130/71
[2024-10-20] MEDS ORDERED: Lisinopril 20 MG Tab PO SCH (09:00)
[2024-10-20] MEDS ORDERED: IBUP800 PO (16:19)
[2024-10-20] MEDS ORDERED: OXYC5 PO (16:19)
[2024-10-20 17:21] VITALS: BP 129/58
--- NOTE | 2024-10-20 17:43 | NUR ---
DISCHARGE NOTE PT IS A/OX4, IND IN ROOM, VOIDING, TOLERATING REG DIET. PAIN IS MANAGEABLE W/ PAIN MEDS PER EMAR. DRESSINGS X3 C/D/I, ABD BINDER IN PLACE. PT STATES SHE HAS PAIN MEDS FILLED AT HOME. SCANT VAG BLEEDING. VSS. DISCHARGE INSTRUCTIONS REVIEWED W/ PT, COPY GIVEN. PT DC'D VIA WC IN STABLE CONDITION W/ BELONGINGS TO [facility].
== END 2024-10-20 17:40 | disposition home or self-care (01) ==
LOC: ORSCMMR 09:03 → ORD 10:00 → SURS 13:15 → ORSCMMR 10-20 17:40
PROVIDERS: Obstetrics & Gynecology
PROC: 0UT9FZZ Resection of Uterus, Via Natural or Artificial Opening With Percutaneous Endoscopic Assistance (ICD-10-PCS; principal; 2024-10-19 10:00)
DX: N93.9 Abnormal uterine and vaginal bleeding, unspecified (principal); D50.0 Iron deficiency anemia secondary to blood loss (chronic); J45.909 Unspecified asthma, uncomplicated; F41.9 Anxiety disorder, unspecified; F32.A Depression, unspecified; E66.01 Morbid (severe) obesity due to excess calories; Z68.42 Body mass index [BMI] 45.0-49.9, adult; Z79.899 Other long term (current) drug therapy
CPT/HCPCS: 88307; A9270; J0690; J1100; J1171; J1885; J2250; J2405; J2704; J3010; J7120

== ENCOUNTER 2025-02-02 17:12 | Emergency (ER) | payer OTHER ==
[~2025-02-02] VITALS: Ht 165.1 cm; Wt 140.6 kg
[~2025-02-02 17:12] MED LIST changes: -CeFAZolin Sodium 3,000 MG in NS 100 ML IV SCH; -Dexamethasone Sod Phos 10 MG/ML 1ML VIAL ONE; -Dexmedetomidine HCL 200 MCG / 2 ML ONE; -FentaNYL Citrate 50 MCG/ML 2 ML Injection ONE; -Ketorolac Tromethamine 30mg Vial ONE; -Lactated Ringer's 1,000 ML IV SCH; +OXYC5 PO; -Ondansetron HCl 2 MG / ML 2ML Vial ONE; -Rocuronium Bromide 10 MG/ML 5ML Injection IV ONE; -Sugammadex Sodium 200 MG/2ML SDV (100 MG/ML) ONE; -propofoL 20 ML IV ONE
[2025-02-02 17:43] LABS: Source, Urine Clean Catch
[2025-02-02 17:49] LABS: BASOPHILS ABSOLUTE AUTO 0.04 K/mm3 (0.00-0.23); BASOPHILS PERCENT AUTO 1 % (0-2); EOSINOPHILS ABSOLUTE AUTO 0.25 K/mm3 (0.00-0.68); EOSINOPHILS PERCENT AUTO 3 % (0-6); Hematocrit 39.3 % (33.0-51.0); Hemoglobin 13.1 g/dL (11.5-16.0); IMMATURE GRAN ABSOLUTE AUTO 0.03 K/mm3 (0.00-0.10); IMMATURE GRAN PERCENT AUTO 0 % (0-1); LYMPHOCYTES ABSOLUTE AUTO 2.46 K/mm3 (0.84-5.20); LYMPHOCYTES PERCENT AUTO 28 % (21-46); MONOCYTES ABSOLUTE AUTO 0.39 K/mm3 (0.16-1.47); MONOCYTES PERCENT AUTO 4 % (4-13); Mean Corpuscular HGB Conc 33.3 g/dL (31.5-36.5); Mean Corpuscular Volume 89 fL (80-100); NEUTROPHILS ABSOLUTE AUTO 5.66 K/mm3 (1.96-9.15); NEUTROPHILS PERCENT AUTO 64 % (41-73); NRBC ABSOLUTE 0.00 K/mm3 (0.00-0.02); NRBC Auto 0.0 /100 WBC (0.0-0.2); Platelet Count 267 K/mm3 (150-400); RDW Coefficient Variation 13.6 % (11.7-14.2); RDW Standard Deviation 44.4 fL (35.1-46.3)
[2025-02-02 17:49] LABS: Bilirubin, Urine Neg (Neg); Color, Urine Yellow (P-Yellow); Glucose Qualitative, Urine Neg (Neg); Ketones, Urine Neg (Neg); Leukocyte Esterase, Urine Neg (Neg); Protein, Urine 1+ (Neg); Specific Gravity, Urine 1.020 (1.003-1.022); Urobilinogen, Urine NORM (Normal)
[2025-02-02 17:56] LABS: White Blood Cells, Urine 0-2 /hpf (0-5)
[2025-02-02 18:15] LABS: Alanine Aminotransfer (ALT/SGP 26.0 U/L (12-78); Albumin, Blood 3.2 g/dL (3.4-5.0); Albumin/Globulin Ratio 0.8 (0.8-1.8); Anion Gap 7.0 mmol/L (3-11); Aspartate Aminotrans (AST/SGOT 14.0 U/L (12-37); Bilirubin, Total 0.5 mg/dL (0.1-1.0); Blood Urea Nitrogen 11.0 mg/dL (8-24); CO2, Blood 27.0 mmol/L (21-32); Calcium, Blood 9.0 mg/dL (8.5-10.1); Chloride, Blood 107.0 mmol/L (98-108); Creatinine, Blood 0.72 mg/dL (0.40-1.00); Globulin, Blood 4.0 g/dL (2.2-4.0); Glucose, Blood 103.0 mg/dL (70-99); Potassium, Blood 3.7 mmol/L (3.5-5.5); Sodium, Blood 137.0 mmol/L (136-145); Total Protein, Blood 7.2 g/dL (6.4-8.2)
[2025-02-02] MEDS ORDERED: Ketorolac Tromethamine 30mg Vial IV ONE (18:35)
[2025-02-02] MEDS ORDERED: METFORMIN HCL500 M3 PO (19:27)
[2025-02-02] MEDS ORDERED: MOBIC15 MG PO (19:27)
[2025-02-02] MEDS ORDERED: TOPI25 PO (19:28)
[2025-02-02] MEDS ORDERED: Metoclopramide HCl 5MG / ML 2ML Vial IV ONE (19:50)
[2025-02-02] MEDS ORDERED: DiphenhydrAMINE HCl 50 MG/ML 1ML Vial IV ONE ×2 (19:50→20:15)
[2025-02-02 20:00] VITALS: BP 138/74
[2025-02-02] MEDS ORDERED: Benztropine Mesylate 1 MG/ML 2ML Amp IV ONE (20:20)
[2025-02-02 20:29] LABS: Magnesium, Blood 1.8 mg/dL (1.6-2.4)
[2025-02-02] MEDS ORDERED: REGLAN1013 PO (22:42)
== END 2025-02-02 22:58 | disposition home or self-care (01) ==
LOC: ER 17:12
PROVIDERS: Student in an Organized Health Care Education/Training Program
DX: N20.0 Calculus of kidney (principal); S06.0XAA Concussion with loss of consciousness status unknown, initial encounter; E86.0 Dehydration; K42.9 Umbilical hernia without obstruction or gangrene; W22.8XXA Striking against or struck by other objects, initial encounter; Z88.0 Allergy status to penicillin; Z79.899 Other long term (current) drug therapy; Z87.891 Personal history of nicotine dependence; Z90.710 Acquired absence of both cervix and uterus
CPT/HCPCS: 70450; 74177; 80053; 81001; 83690; 83735; 85025; 96361; 96374-59; 96375; 99284-25; J0515; J1200; J1885; J2765; J7120; Q9967

== ENCOUNTER 2025-03-08 09:32 | Emergency (ER) | payer OTHER ==
[~2025-03-08] VITALS: Ht 165.1 cm; Wt 143.3 kg
[~2025-03-08 09:32] MED LIST changes: +MOBIC15 MG PO; +REGLAN1013 PO; +TOPI25 PO
[2025-03-08] MEDS ORDERED: Ketorolac Tromethamine 30mg Vial IV ONE (10:25)
[2025-03-08] MEDS ORDERED: Ondansetron HCl 2 MG / ML 2ML Vial IV ONE (10:25)
[2025-03-08 10:37] LABS: BASOPHILS ABSOLUTE AUTO 0.04 K/mm3 (0.00-0.23); BASOPHILS PERCENT AUTO 0 % (0-2); EOSINOPHILS ABSOLUTE AUTO 0.28 K/mm3 (0.00-0.68); EOSINOPHILS PERCENT AUTO 3 % (0-6); Hematocrit 41.8 % (33.0-51.0); Hemoglobin 13.8 g/dL (11.5-16.0); IMMATURE GRAN ABSOLUTE AUTO 0.04 K/mm3 (0.00-0.10); IMMATURE GRAN PERCENT AUTO 0 % (0-1); LYMPHOCYTES ABSOLUTE AUTO 2.06 K/mm3 (0.84-5.20); LYMPHOCYTES PERCENT AUTO 21 % (21-46); MONOCYTES ABSOLUTE AUTO 0.41 K/mm3 (0.16-1.47); MONOCYTES PERCENT AUTO 4 % (4-13); Mean Corpuscular HGB Conc 33.0 g/dL (31.5-36.5); Mean Corpuscular Volume 88 fL (80-100); NEUTROPHILS ABSOLUTE AUTO 7.09 K/mm3 (1.96-9.15); NEUTROPHILS PERCENT AUTO 72 % (41-73); NRBC ABSOLUTE 0.00 K/mm3 (0.00-0.02); NRBC Auto 0.0 /100 WBC (0.0-0.2); Platelet Count 252 K/mm3 (150-400); RDW Coefficient Variation 13.7 % (11.7-14.2); RDW Standard Deviation 43.7 fL (35.1-46.3)
[2025-03-08 10:42] LABS: Source, Urine Voided
[2025-03-08 10:57] LABS: Bilirubin, Urine Neg (Neg); Glucose Qualitative, Urine Neg (Neg); Ketones, Urine Neg (Neg); Leukocyte Esterase, Urine 1+ (Neg); Protein, Urine 1+ (Neg); Specific Gravity, Urine 1.020 (1.003-1.022); Urobilinogen, Urine NORM (Normal)
[2025-03-08 11:06] LABS: Color, Urine Yellow (P-Yellow)
[2025-03-08 11:15] LABS: Alanine Aminotransfer (ALT/SGP 28.0 U/L (12-78); Albumin, Blood 3.4 g/dL (3.4-5.0); Albumin/Globulin Ratio 0.8 (0.8-1.8); Anion Gap 6.0 mmol/L (3-11); Aspartate Aminotrans (AST/SGOT 25.0 U/L (12-37); Bilirubin, Total 0.9 mg/dL (0.1-1.0); Blood Urea Nitrogen 11.0 mg/dL (8-24); CO2, Blood 26.0 mmol/L (21-32); Calcium, Blood 9.1 mg/dL (8.5-10.1); Chloride, Blood 107.0 mmol/L (98-108); Creatinine, Blood 0.75 mg/dL (0.40-1.00); Globulin, Blood 4.1 g/dL (2.2-4.0); Glucose, Blood 113.0 mg/dL (70-99); Potassium, Blood 3.6 mmol/L (3.5-5.5); Sodium, Blood 135.0 mmol/L (136-145); Total Protein, Blood 7.5 g/dL (6.4-8.2)
[2025-03-08 11:50] VITALS: BP 187/99
[2025-03-08] MEDS ORDERED: Morphine Sulfate 4 MG/1 ML Injection IV ONE (12:30)
[2025-03-08] MEDS ORDERED: HYDROCODONE-AC1 EA10 PO (14:09)
[2025-03-08] MEDS ORDERED: ONDA4ODT MM (14:09)
[2025-03-08] MEDS ORDERED: Cipro500 MG PO (14:09)
[2025-03-08] MEDS ORDERED: Pyridium100 MG PO (14:09)
== END 2025-03-08 14:23 | disposition home or self-care (01) ==
LOC: ER 09:32
PROVIDERS: Emergency Medicine
DX: N39.0 Urinary tract infection, site not specified (principal); N20.0 Calculus of kidney; Z88.0 Allergy status to penicillin; Z87.891 Personal history of nicotine dependence
CPT/HCPCS: 76770; 80053; 81001; 85025; 87077; 87086; 87186; 96374; 96375; 99284-25; J1885; J2270; J2405

== ENCOUNTER 2025-06-24 18:23 | Emergency (ER) | payer OTHER ==
[~2025-06-24] VITALS: Ht 165.1 cm; Wt 152.4 kg
[~2025-06-24 18:23] MED LIST changes: -Deltasone 10 mg10 MG PO; -SERT25 PO
[2025-06-24] MEDS ORDERED: SERT25 PO (22:00)
[2025-06-24] MEDS ORDERED: Deltasone 10 mg10 MG PO (22:01)
[2025-06-24] MEDS ORDERED: Ketorolac Tromethamine 15mg Vial IV ONE (22:20)
[2025-06-24 22:45] VITALS: BP 131/80
== END 2025-06-24 22:56 | disposition home or self-care (01) ==
LOC: ER 18:23
DX: R07.89 Other chest pain (principal); R06.02 Shortness of breath; Z88.0 Allergy status to penicillin; Z87.891 Personal history of nicotine dependence
CPT/HCPCS: 71045; 71260; 96374-59; 99285-25; J1885; Q9967

== ENCOUNTER → 2025-06-24 | Outpatient (CLI) | payer OTHER ==
[~2025-06-24] MED LIST changes: +Deltasone 10 mg10 MG PO; +HYDROCODONE-AC1 EA10 PO; +SERT25 PO
== END ==
LOC: LAB 17:45 → LAB SHORT 17:45
DX: R00.0 Tachycardia, unspecified (principal)
CPT/HCPCS: 84484; 85379